=== PATIENT | female | born 1980 | race Caucasian/White ===

== ENCOUNTER 2018-05-15 09:38 | Emergency (ER) | payer SELFPAY ==
[~2018-05-15] VITALS: Ht 152.4 cm; Wt 63.6 kg
[~2018-05-15 09:38] MED LIST: AMOXICILLIN 50500 MG PO; NO HOME MEDICATIONS; NORCO 325 MG-51 TAB PO; SYNTHROID0.1 MG/TAB PO
[2018-05-15 09:52] VITALS: TEMP 99.2
[2018-05-15 11:11] LABS: COLLECTION METHOD CLEAN CATCH
[2018-05-15 11:21] LABS: PH 7 (5-8); SQUAMOUS EPITHELIAL 0-2 /hpf; URINE APPEARANCE Clear; URINE BACTERIA Many /hpf; URINE BILIRUBIN Negative (NEGATIVE); URINE BLOOD 1+ (NEGATIVE); URINE COLOR Yellow; URINE GLUCOSE Negative (NEGATIVE); URINE KETONE Negative (NEGATIVE); URINE LEUKOCYTE ESTERASE Negative (NEGATIVE); URINE NITRATE Negative (NEGATIVE); URINE PROTEIN(semi-quant) Negative (NEGATIVE); URINE RBC 0-2 /hpf; URINE UROBILINOGEN Negative (NEGATIVE)
[2018-05-15 12:11] LABS: MEAN CELL VOLUME 86 fl (80.0-100.0); MEAN CORPUSCULAR HGB CONC 35 g/dl (33.0-37.0); MEAN PLATELET VOLUME 11.8 fl (7.4-10.4); PLATELET COUNT 147 K/mm3 (130-400); RED BLOOD COUNT 2.91 M/mm3 (4.10-5.30); REDCELL DISTRIBUTION WIDTH-CV 13.8 % (11.5-14.5)
[2018-05-15 12:12] LABS: HEMATOCRIT 24.9 % (37.0-47.0); HEMOGLOBIN 8.7 g/dl (12.5-16.0); MEAN CORPUSCULAR HEMOGLOBIN 30 pg (27.0-31.0)
[2018-05-15 12:42] LABS: ALANINE AMINOTRANSFERASE 37 U/L (9-52); ALBUMIN 3.4 gm/dL (3.5-5.0); ALKALINE PHOSPHATASE 146 U/L (50-136); ANION GAP 10 mmol/L (7-16); AST,SGOT 44 U/L (15-37); BILIRUBIN,TOTAL 0.5 mg/dL (0.0-1.0); BLOOD UREA NITROGEN 9 mg/dL (7-17); CALCIUM 10.8 mg/dL (8.4-10.2); CARBON DIOXIDE 21 mmol/L (22-30); CHLORIDE 100 mmol/L (98-107); CREATININE, serum 0.82 mg/dL (0.52-1.25); GLUCOSE 78 mg/dL (74-106); SODIUM 132 mmol/L (137-145); TOTAL PROTEIN 6.7 gm/dL (6.4-8.2)
[2018-05-15] MEDS ORDERED: SYNTHROID 0.0.025 MG PO (13:10)
[2018-05-15] MEDS ORDERED: SYNTHROID0.2 MG/TAB PO (13:10)
[2018-05-15 14:01] VITALS: BP 124/94; PULSE 78
[2018-05-17 11:45] LABS: LUPUS ANTICOAGULANT PT 10.9 sec (())
[2018-05-17 23:14] LABS: BETA-2 GPI IGG AABS <9.4 U/mL (()); BETA-2 GPI IGM AABS 59.3 U/mL (())
== END 2018-05-15 14:05 | disposition home or self-care (01) ==
LOC: COL.ER 09:38
PROVIDERS: Emergency Medicine; Student in an Organized Health Care Education/Training Program
DX: O99.012 Anemia complicating pregnancy, second trimester (principal); O99.332 Smoking (tobacco) complicating pregnancy, second trimester; O99.282 Endocrine, nutritional and metabolic diseases complicating pregnancy, second trimester; E03.9 Hypothyroidism, unspecified; Z37.1 Single stillbirth; F17.210 Nicotine dependence, cigarettes, uncomplicated; Z3A.00 Weeks of gestation of pregnancy not specified

== ENCOUNTER 2018-11-25 08:38 | Emergency (ER) | payer SELFPAY ==
[~2018-11-25] VITALS: Ht 152.4 cm; Wt 56.8 kg
[2018-11-25 08:38] VITALS: TEMP 97.7
[~2018-11-25 08:38] MED LIST changes: +SYNTHROID 0.0.025 MG PO; +SYNTHROID0.2 MG/TAB PO
[2018-11-25] MEDS ORDERED: NATURAL IRON65 MG PO (08:40)
[2018-11-25 09:07] LABS: BASO # 0.1 (0.0-0.2); BASO % 0.8 % (0.0-2.0); EOS # 0.1 (0.0-0.7); EOS % 0.8 % (0-4.0); GRAN # 3.5 (1.4-6.5); HEMOGLOBIN 10.9 g/dl (12.5-16.0); LYMPH # 3.3 (1.2-3.4); LYMPH % 45.1 % (20.0-51.0); MEAN CELL VOLUME 85 fl (80.0-100.0); MEAN CORPUSCULAR HEMOGLOBIN 27 pg (27.0-31.0); MEAN CORPUSCULAR HGB CONC 32 g/dl (33.0-37.0); MEAN PLATELET VOLUME 11.8 fl (7.4-10.4); MONO # 0.4 (0.1-0.6); PLATELET COUNT 249 K/mm3 (130-400); RED BLOOD COUNT 4.04 M/mm3 (4.10-5.30); REDCELL DISTRIBUTION WIDTH-CV 15.9 % (11.5-14.5)
[2018-11-25 09:13] LABS: ALBUMIN 4.3 gm/dL (3.5-5.0); BILIRUBIN,TOTAL 0.3 mg/dL (0.0-1.0); CALCIUM 9.3 mg/dL (8.4-10.2); CREATININE, serum 1.35 mg/dL (0.52-1.25); HEMATOCRIT 34.5 % (37.0-47.0); POTASSIUM 3.5 mmol/L (3.4-5.0); TOTAL PROTEIN 7.7 gm/dL (6.4-8.2)
[2018-11-25 10:25] VITALS: BP 93/60; PULSE 63
== END 2018-11-25 10:30 | disposition home or self-care (01) ==
LOC: COL.ER 08:38
PROVIDERS: Emergency Medicine
DX: R55 Syncope and collapse (principal); D64.9 Anemia, unspecified; F17.210 Nicotine dependence, cigarettes, uncomplicated

== ENCOUNTER 2019-04-18 12:27 | Emergency (ER) | payer SELFPAY ==
[~2019-04-18] VITALS: Ht 152.4 cm; Wt 56.8 kg
[~2019-04-18 12:27] MED LIST changes: +NATURAL IRON65 MG PO
[2019-04-18 12:37] VITALS: BP 99/64; TEMP 98.4
[2019-04-18 12:55] LABS: COLLECTION METHOD CLEAN CATCH
[2019-04-18 13:05] LABS: BUDDING YEAST Present /hpf; MUCOUS Present /lpf; PH 6 (5-8); URINE APPEARANCE Cloudy; URINE BACTERIA Many /hpf; URINE BILIRUBIN Negative (NEGATIVE); URINE BLOOD 3+ (NEGATIVE); URINE COLOR Amber; URINE GLUCOSE Negative (NEGATIVE); URINE KETONE Negative (NEGATIVE); URINE LEUKOCYTE ESTERASE Trace (NEGATIVE); URINE NITRATE Positive (NEGATIVE); URINE PROTEIN(semi-quant) 1+ (NEGATIVE)
[2019-04-18] MEDS ORDERED: CIPRO 500MG TA500 MG PO (13:30)
[2019-04-18 13:45] VITALS: PULSE 71
== END 2019-04-18 13:45 | disposition home or self-care (01) ==
LOC: COL.ER 12:27
PROVIDERS: Physician Assistant
DX: N30.81 Other cystitis with hematuria (principal)